=== PATIENT | female | born 1980 | race Caucasian/White ===

== ENCOUNTER 2020-09-20 14:44 | Emergency (ER) | payer MEDICAID ==
[~2020-09-20] VITALS: Ht 170.2 cm; Wt 104.1 kg
[2020-09-20 14:51] VITALS: BP 137/90
--- NOTE | 2020-09-20 15:04 | NUR ---
PT WALKED BACK FROM TRIAGE WITH CHIEF COMPLAINT LEFT DENTAL PAIN. ERMD SAHM AT [facility] FOR EVAL
[2020-09-20] MEDS ORDERED: DIPHENHYDRAMINE 50 MG/ML, 1ML ONE (15:29)
[2020-09-20] MEDS ORDERED: DIPHENHYDRAMINE 50 MG/ML, 1ML IVPush ONE (15:30)
[2020-09-20] MEDS ORDERED: methylPREDNISolone SOD SUCC 125 MG/2 ML IVPush ONE (15:30)
[2020-09-20] MEDS ORDERED: SODIUM CHLORIDE FLUSH 10ML SYR IVF ONE (15:30)
[2020-09-20] MEDS ORDERED: methylPREDNISolone SOD SUCC 125 MG/2 ML ONE (15:30)
--- NOTE | 2020-09-20 15:37 | NUR ---
pt medicated per order, tolerated well.
[2020-09-20 15:52] LABS: BASOPHILS % (AUTO) 1 % (0-1); EOSINOPHILS % (AUTO) 2 % (1-7); LYMPHOCYTES % (AUTO) 18 % (22-44); MEAN CORPUSCULAR HEMOGLOBIN 31.4 pg (27.0-34.8); MEAN CORPUSCULAR HGB CONC 34.3 g/dL (32.4-35.8); MEAN PLATELET VOLUME 7.9 fL (7.4-10.4); MONOCYTES % (AUTO) 6 % (2-9); NEUTROPHILS % (AUTO) 74 % (42-75); PLATELET COUNT 382 x10^3/uL (130-400); RED BLOOD COUNT 4.27 x10^6/uL (3.82-5.3); RED CELL DISTRIBUTION WIDTH 13.6 % (9.6-15.2)
[2020-09-20 16:04] LABS: ALBUMIN 3.5 g/dL (3.4-5.0); CALCIUM 8.6 mg/dL (8.5-10.1); CREATININE 0.73 mg/dL (0.55-1.02)
[2020-09-20 16:12] LABS: ANION GAP 4 mmol/L (5-15); CHLORIDE 107 mmol/L (98-107)
--- NOTE | 2020-09-20 17:20 | NUR ---
this rn called ct to check on status, ct states they will be coming to get pt shortly.
--- NOTE | 2020-09-20 17:23 | NUR ---
pt to ct
[2020-09-20] MEDS ORDERED: OMNIPAQUE 350 MG/ML, 75ML BOTTLE ONE (17:41)
--- NOTE | 2020-09-20 18:19 | NUR ---
jacinto Arevalo at bedside to discuss poc
--- NOTE | 2020-09-20 18:44 | NUR ---
pt educated on dc, verbalized understanding. ambulatory to dc with steady gait.
== END 2020-09-20 18:46 | disposition home or self-care (01) ==
LOC: ED 18:30
DX: K02.9 Dental caries, unspecified (principal); K08.89 Other specified disorders of teeth and supporting structures; R22.0 Localized swelling, mass and lump, head; F17.200 Nicotine dependence, unspecified, uncomplicated
CPT/HCPCS: 36415; 70487; 80048; 82040; 85025; 96374; 96375; 99285; J1200; J2930; Q9967